=== PATIENT | male | born 1955 | race Caucasian/White ===

== ENCOUNTER 2021-02-17 17:02 | Inpatient (IN) | payer MEDICARE, OTHER ==
[~2021-02-17] VITALS: Ht 177.8 cm; Wt 239.4 kg
[2021-02-17 17:30] LABS: Basophils # (auto) 0 10 ^3/uL (0-0.2); Eosinophils # (auto) 0 10 ^3/uL (0-0.8); Lymphocytes # (auto) 0.4 10 ^3/uL (0.4-5.4); Monocytes # (auto) 0.6 10 ^3/uL (0-1.3); Red Blood Cells 2.56 10^6/uL (4.5-5.90); White Blood Cell 6.3 10^3/uL (4.4-10.8)
[2021-02-17 17:32] LABS: Basophils % (auto) 0.4 % (0.0-2.0); Eosinophils % (auto) 0.4 % (0.0-7.0); Hematocrit 24.7 % (41.0-53.0); Hemoglobin 7.9 g/dL (13.5-17.5); Mean Corpuscular Hgb Conc. 32.1 g/dL (32.0-36.0); Mean Corpuscular Volume 96.6 fL (80.0-100.0); Monocytes % (auto) 9.6 % (0.0-12.0); Neutrophils # (auto) 5.2 10 ^3/uL (1.6-8.6); Neutrophils % (auto) 82.6 % (37.0-80.0); Red Cell Distribution Width 18.2 % (11.8-14.3)
[2021-02-17 17:46] LABS: Alanine Aminotransferase 30 U/L (16-61); Albumin 1.7 g/dL (3.4-5.0); Anion Gap 9 (5-15); Aspartate Aminotransferase 45 U/L (15-37); BUN/Creatinine Ratio 25.7; Blood Urea Nitrogen 28 mg/dL (7-18); Calcium 8.1 mg/dL (8.5-10.1); Carbon Dioxide 27 mmol/L (21-32); Chloride 101 mmol/L (98-107); GFR African American 87 mL/min; GFR Non-African American 72 mL/min; Glucose 114 mg/dL (74-106); Potassium 4.3 mmol/L (3.5-5.1); Sodium 137 mmol/L (136-145)
[2021-02-17 18:05] LABS: Alkaline Phosphatase 102 U/L (45-117); Bilirubin, Total 4.2 mg/dL (0.2-1.0); Magnesium 2.6 mg/dL (1.6-2.6); Total Protein 6.9 g/dL (6.4-8.2)
[2021-02-17] MEDS ORDERED: PROMETHAZINE HCL 25 MG/ML 1ML IV ONE (18:30)
[2021-02-17] MEDS ORDERED: ONDANSETRON HCL 4 MG/2 ML VIAL IV PRN (23:00)
[2021-02-17] MEDS ORDERED: NITROGLYCERIN 0.4 MG SL TAB SL PRN (23:00)
[2021-02-17] MEDS ORDERED: MORPHINE SULFATE INJECTION 2 MG/ML SYRG IV PRN (23:00)
[2021-02-17] MEDS: ALBUMIN 25% 50 ML IV SCH (23:52)
[2021-02-18] VITALS (17 sets, daily range): BP systolic 91–121; BP diastolic 42–67
[2021-02-18 00:32] LABS: INR 1.38 (0.9-1.15); Partial Thromboplastin Time 33.7 sec (23.6-33.0)
[2021-02-18] MEDS: MORPHINE SULFATE 4 MG/ML SYR/VIAL IV PRN ×5 (01:41→18:30)
[2021-02-18] MEDS ORDERED: INFLUENZA QUAD 2020-2021 0.5 ML SYRG IM ONE (04:00)
[2021-02-18] MEDS ORDERED: MORP30TA PO (04:11)
[2021-02-18] MEDS ORDERED: ALPR0.25 PO (04:11)
[2021-02-18] MEDS ORDERED: ALLO100T PO (04:11)
[2021-02-18] MEDS ORDERED: FURO1TAB33 PO (04:11)
[2021-02-18] MEDS ORDERED: OXY10CRT PO (04:11)
[2021-02-18] MEDS: SODIUM CHLOR 0.9% PF (SALINE LOCK) 10ML VIAL/SYR IV SCH ×3 (06:00→22:00)
[2021-02-18 06:32] LABS: Basophils # (auto) 0 10 ^3/uL (0-0.2); Basophils % (auto) 0.3 % (0.0-2.0); Eosinophils # (auto) 0 10 ^3/uL (0-0.8); Eosinophils % (auto) 0.3 % (0.0-7.0); Lymphocytes % (auto) 3.4 % (10.0-50.0); Monocytes # (auto) 0.7 10 ^3/uL (0-1.3)
[2021-02-18 06:34] LABS: Hematocrit 21.6 % (41.0-53.0); Lymphocytes # (auto) 0.5 10 ^3/uL (0.4-5.4); Mean Corpuscular Hemoglobin 31.3 pg (28.0-32.0); Mean Corpuscular Hgb Conc. 32.2 g/dL (32.0-36.0); Mean Corpuscular Volume 97.2 fL (80.0-100.0); Monocytes % (auto) 5.5 % (0.0-12.0); Neutrophils % (auto) 90.5 % (37.0-80.0); Nucleated Red Blood Cells % 0.1 %; Red Blood Cells 2.22 10^6/uL (4.5-5.90); Red Cell Distribution Width 18.2 % (11.8-14.3); White Blood Cell 13.3 10^3/uL (4.4-10.8)
[2021-02-18 06:48] LABS: Hemoglobin 6.9 g/dL (13.5-17.5)
[2021-02-18] MEDS: ALBUMIN 25% 50 ML IV SCH ×2 (06:52→16:34)
[2021-02-18 06:58] LABS: Potassium 4.5 mmol/L (3.5-5.1)
[2021-02-18 07:05] LABS: Albumin 1.7 g/dL (3.4-5.0); Calcium 8.1 mg/dL (8.5-10.1)
[2021-02-18 07:07] LABS: Bilirubin, Total 4.8 mg/dL (0.2-1.0); Total Protein 6.2 g/dL (6.4-8.2)
[2021-02-18 07:18] LABS: Urine Bacteria FEW /hpf (None Seen); Urine Blood Negative /uL (Negative); Urine Mucus FEW (None Seen); Urine Specific Gravity 1.024 (1.001-1.035); Urine WBC 29 /hpf (0 - 3)
[2021-02-18] MEDS: ENOXAPARIN SOD 40 MG/0.4 ML SYRINGE SC SCH (09:48)
[2021-02-18] MEDS ORDERED: FAMOTIDINE (10MG/ML) 2ML VL IV SCH (10:00)
[2021-02-18] MEDS: FUROSEMIDE 40 MG/4 ML VIAL IV SCH (10:00)
[2021-02-18] MEDS: ACETAMINOPHEN 325 MG TAB PO PRN (11:46)
[2021-02-18] MEDS: SUCRALFATE 1 GM/10 ML ORAL SUSP PO SCH ×3 (11:46→22:37)
[2021-02-18] MEDS ORDERED: cefTRIAXone 1GM/50ML D5W 50 ML IV ONE (12:15)
[2021-02-18] MEDS: SPIRONOLACTONE 25 MG TAB PO SCH (12:43)
[2021-02-18] MEDS: oxyCODONE HCL 5MG TAB PO PRN ×2 (14:43→22:37)
[2021-02-18] MEDS: PANTOPRAZOLE 40 MG TAB PO SCH (22:37)
[2021-02-19] VITALS (10 sets, daily range): BP systolic 90–108; BP diastolic 42–63
[2021-02-19] MEDS: SODIUM CHLOR 0.9% PF (SALINE LOCK) 10ML VIAL/SYR IV SCH ×3 (05:32→22:00)
[2021-02-19] MEDS: MORPHINE SULFATE 4 MG/ML SYR/VIAL IV PRN ×3 (05:37→19:38)
[2021-02-19] MEDS: SUCRALFATE 1 GM/10 ML ORAL SUSP PO SCH ×4 (06:32→23:54)
[2021-02-19] MEDS: oxyCODONE HCL 5MG TAB PO PRN ×3 (07:21→23:55)
[2021-02-19] MEDS: cefTRIAXone 1GM/50ML D5W 50 ML IV SCH (08:45)
[2021-02-19] MEDS: SPIRONOLACTONE 25 MG TAB PO SCH (08:46)
[2021-02-19] MEDS: FUROSEMIDE 40 MG/4 ML VIAL IV SCH (08:46)
[2021-02-19] MEDS: PANTOPRAZOLE 40 MG TAB PO SCH ×2 (08:46→23:54)
[2021-02-19] MEDS: ENOXAPARIN SOD 40 MG/0.4 ML SYRINGE SC SCH (08:47)
[2021-02-19 11:20] LABS: Basophils # (auto) 0 10 ^3/uL (0-0.2); Basophils % (auto) 0.3 % (0.0-2.0); Eosinophils # (auto) 0.1 10 ^3/uL (0-0.8); Eosinophils % (auto) 1.5 % (0.0-7.0); Hematocrit 24.9 % (41.0-53.0); Hemoglobin 8.1 g/dL (13.5-17.5); Lymphocytes # (auto) 0.5 10 ^3/uL (0.4-5.4); Lymphocytes % (auto) 5.6 % (10.0-50.0); Mean Corpuscular Hemoglobin 31.9 pg (28.0-32.0); Mean Corpuscular Hgb Conc. 32.7 g/dL (32.0-36.0); Mean Corpuscular Volume 97.7 fL (80.0-100.0); Monocytes # (auto) 0.6 10 ^3/uL (0-1.3); Monocytes % (auto) 6.6 % (0.0-12.0); Neutrophils # (auto) 7.9 10 ^3/uL (1.6-8.6); Nucleated Red Blood Cells % 0.1 %; Red Blood Cells 2.55 10^6/uL (4.5-5.90); Red Cell Distribution Width 18.7 % (11.8-14.3); White Blood Cell 9.2 10^3/uL (4.4-10.8)
[2021-02-20] VITALS (14 sets, daily range): BP systolic 95–132; BP diastolic 43–69
[2021-02-20] MEDS: MORPHINE SULFATE 4 MG/ML SYR/VIAL IV PRN ×3 (00:51→22:03)
[2021-02-20] MEDS: oxyCODONE HCL 5MG TAB PO PRN ×3 (04:23→18:21)
[2021-02-20] MEDS: SODIUM CHLOR 0.9% PF (SALINE LOCK) 10ML VIAL/SYR IV SCH ×3 (05:46→22:02)
[2021-02-20 07:35] LABS: Basophils # (auto) 0 10 ^3/uL (0-0.2); Eosinophils # (auto) 0.2 10 ^3/uL (0-0.8); Hemoglobin 8.4 g/dL (13.5-17.5); Lymphocytes # (auto) 0.5 10 ^3/uL (0.4-5.4); Mean Corpuscular Hemoglobin 32.2 pg (28.0-32.0); Monocytes # (auto) 0.7 10 ^3/uL (0-1.3); Nucleated Red Blood Cells % 0.2 %
[2021-02-20 07:37] LABS: Basophils % (auto) 0.2 % (0.0-2.0); Eosinophils % (auto) 2.4 % (0.0-7.0); Hematocrit 25.3 % (41.0-53.0); Lymphocytes % (auto) 5.6 % (10.0-50.0); Mean Corpuscular Hgb Conc. 33.2 g/dL (32.0-36.0); Mean Corpuscular Volume 96.8 fL (80.0-100.0); Neutrophils # (auto) 6.7 10 ^3/uL (1.6-8.6); Neutrophils % (auto) 82.8 % (37.0-80.0); Red Blood Cells 2.61 10^6/uL (4.5-5.90); Red Cell Distribution Width 17.9 % (11.8-14.3); White Blood Cell 8.1 10^3/uL (4.4-10.8)
[2021-02-20] MEDS: cefTRIAXone 1GM/50ML D5W 50 ML IV SCH (09:42)
[2021-02-20] MEDS: SUCRALFATE 1 GM/10 ML ORAL SUSP PO SCH ×4 (09:42→22:02)
[2021-02-20] MEDS: SPIRONOLACTONE 25 MG TAB PO SCH (09:43)
[2021-02-20] MEDS: PANTOPRAZOLE 40 MG TAB PO SCH ×2 (09:45→22:02)
[2021-02-20] MEDS: FUROSEMIDE 40 MG/4 ML VIAL IV SCH (09:49)
[2021-02-20] MEDS: ENOXAPARIN SOD 40 MG/0.4 ML SYRINGE SC SCH (10:00)
[2021-02-20 11:20] LABS: % Iron Saturation 13.8 % (20-55)
[2021-02-20] MEDS: predniSONE 20 MG TAB PO SCH (12:00)
[2021-02-21] VITALS (13 sets, daily range): BP systolic 96–118; BP diastolic 45–69
[2021-02-21] MEDS: oxyCODONE HCL 5MG TAB PO PRN ×3 (03:09→19:22)
[2021-02-21 05:38] LABS: Basophils # (auto) 0 10 ^3/uL (0-0.2); Basophils % (auto) 0.1 % (0.0-2.0); Eosinophils # (auto) 0 10 ^3/uL (0-0.8); Monocytes # (auto) 0.5 10 ^3/uL (0-1.3); Nucleated Red Blood Cells % 0.1 %
[2021-02-21 05:41] LABS: Hematocrit 25.2 % (41.0-53.0); Hemoglobin 8.3 g/dL (13.5-17.5); Lymphocytes # (auto) 0.2 10 ^3/uL (0.4-5.4); Lymphocytes % (auto) 3.7 % (10.0-50.0); Mean Corpuscular Hemoglobin 31.9 pg (28.0-32.0); Mean Corpuscular Hgb Conc. 33.1 g/dL (32.0-36.0); Mean Corpuscular Volume 96.4 fL (80.0-100.0); Monocytes % (auto) 7.6 % (0.0-12.0); Neutrophils # (auto) 5.9 10 ^3/uL (1.6-8.6); Neutrophils % (auto) 88.6 % (37.0-80.0); Red Blood Cells 2.62 10^6/uL (4.5-5.90); White Blood Cell 6.7 10^3/uL (4.4-10.8)
[2021-02-21] MEDS: SODIUM CHLOR 0.9% PF (SALINE LOCK) 10ML VIAL/SYR IV SCH ×3 (06:15→21:44)
[2021-02-21] MEDS: SUCRALFATE 1 GM/10 ML ORAL SUSP PO SCH ×4 (06:15→21:44)
[2021-02-21] MEDS: cefTRIAXone 1GM/50ML D5W 50 ML IV SCH (09:35)
[2021-02-21] MEDS: ENOXAPARIN SOD 40 MG/0.4 ML SYRINGE SC SCH (09:35)
[2021-02-21] MEDS: predniSONE 20 MG TAB PO SCH (09:36)
[2021-02-21] MEDS: PANTOPRAZOLE 40 MG TAB PO SCH ×2 (09:36→21:44)
[2021-02-21] MEDS: SPIRONOLACTONE 25 MG TAB PO SCH (09:36)
[2021-02-21] MEDS: FUROSEMIDE 40 MG/4 ML VIAL IV SCH (09:36)
[2021-02-21] MEDS: MORPHINE SULFATE 4 MG/ML SYR/VIAL IV PRN (15:21)
[2021-02-21] MEDS: ACETAMINOPHEN 325 MG TAB PO PRN (21:45)
[2021-02-22] VITALS (10 sets, daily range): BP systolic 98–115; BP diastolic 45–66
[2021-02-22] MEDS: oxyCODONE HCL 5MG TAB PO PRN ×4 (02:57→22:26)
[2021-02-22] MEDS: SODIUM CHLOR 0.9% PF (SALINE LOCK) 10ML VIAL/SYR IV SCH ×3 (05:56→22:18)
[2021-02-22] MEDS: SUCRALFATE 1 GM/10 ML ORAL SUSP PO SCH ×4 (05:57→22:18)
[2021-02-22] MEDS: cefTRIAXone 1GM/50ML D5W 50 ML IV SCH (09:56)
[2021-02-22] MEDS: PANTOPRAZOLE 40 MG TAB PO SCH ×2 (09:58→22:19)
[2021-02-22] MEDS: FUROSEMIDE 40 MG/4 ML VIAL IV SCH (09:58)
[2021-02-22] MEDS: SPIRONOLACTONE 25 MG TAB PO SCH (09:58)
[2021-02-22] MEDS: predniSONE 20 MG TAB PO SCH (09:58)
[2021-02-22] MEDS: ENOXAPARIN SOD 40 MG/0.4 ML SYRINGE SC SCH (09:59)
[2021-02-23] MEDS: oxyCODONE HCL 5MG TAB PO PRN ×5 (02:30→21:50)
[2021-02-23 05:00] VITALS: BP 111/64
[2021-02-23] MEDS: SUCRALFATE 1 GM/10 ML ORAL SUSP PO SCH ×4 (06:37→21:49)
[2021-02-23] MEDS: SODIUM CHLOR 0.9% PF (SALINE LOCK) 10ML VIAL/SYR IV SCH ×3 (06:37→21:49)
[2021-02-23 09:00] VITALS: BP 114/62
[2021-02-23] MEDS: PANTOPRAZOLE 40 MG TAB PO SCH ×2 (10:09→21:49)
[2021-02-23] MEDS: ENOXAPARIN SOD 40 MG/0.4 ML SYRINGE SC SCH ×2 (10:09→10:23)
[2021-02-23] MEDS: cefTRIAXone 1GM/50ML D5W 50 ML IV SCH (10:09)
[2021-02-23] MEDS: predniSONE 20 MG TAB PO SCH (10:09)
[2021-02-23] MEDS: SPIRONOLACTONE 25 MG TAB PO SCH (10:09)
[2021-02-23] MEDS: FUROSEMIDE 40 MG/4 ML VIAL IV SCH (10:12)
[2021-02-23 13:00] VITALS: BP 143/63
[2021-02-23 16:44] VITALS: BP 142/68
[2021-02-23 22:00] VITALS: BP 121/63
[2021-02-24] MEDS: oxyCODONE HCL 5MG TAB PO PRN ×4 (02:27→17:03)
[2021-02-24 05:20] VITALS: BP 116/64
[2021-02-24] MEDS: SUCRALFATE 1 GM/10 ML ORAL SUSP PO SCH ×3 (06:56→16:58)
[2021-02-24] MEDS: SODIUM CHLOR 0.9% PF (SALINE LOCK) 10ML VIAL/SYR IV SCH ×2 (06:56→15:21)
[2021-02-24 09:00] VITALS: BP 111/55
[2021-02-24] MEDS: ENOXAPARIN SOD 40 MG/0.4 ML SYRINGE SC SCH ×2 (10:00→12:39)
[2021-02-24] MEDS: cefTRIAXone 1GM/50ML D5W 50 ML IV SCH (11:30)
[2021-02-24] MEDS: predniSONE 20 MG TAB PO SCH (11:31)
[2021-02-24] MEDS: SPIRONOLACTONE 25 MG TAB PO SCH (11:31)
[2021-02-24] MEDS: FUROSEMIDE 40 MG/4 ML VIAL IV SCH (11:31)
[2021-02-24] MEDS: PANTOPRAZOLE 40 MG TAB PO SCH (11:32)
[2021-02-24 13:00] VITALS: BP 119/65
[2021-02-24 16:10] LABS: Basophils # (auto) 0 10 ^3/uL (0-0.2); Basophils % (auto) 0.2 % (0.0-2.0); Eosinophils # (auto) 0 10 ^3/uL (0-0.8); Eosinophils % (auto) 0.1 % (0.0-7.0); Hematocrit 30.1 % (41.0-53.0); Hemoglobin 9.6 g/dL (13.5-17.5); Lymphocytes # (auto) 0.4 10 ^3/uL (0.4-5.4); Lymphocytes % (auto) 6.4 % (10.0-50.0); Mean Corpuscular Hemoglobin 30.8 pg (28.0-32.0); Mean Corpuscular Hgb Conc. 31.9 g/dL (32.0-36.0); Mean Corpuscular Volume 96.6 fL (80.0-100.0); Monocytes # (auto) 0.5 10 ^3/uL (0-1.3); Monocytes % (auto) 8.6 % (0.0-12.0); Neutrophils % (auto) 84.7 % (37.0-80.0); Nucleated Red Blood Cells % 0.7 %; Red Blood Cells 3.12 10^6/uL (4.5-5.90); Red Cell Distribution Width 18.7 % (11.8-14.3); White Blood Cell 5.9 10^3/uL (4.4-10.8)
[2021-02-24 16:18] LABS: Albumin 1.6 g/dL (3.4-5.0); Calcium 8.1 mg/dL (8.5-10.1); Potassium 4.8 mmol/L (3.5-5.1)
[2021-02-24 16:20] LABS: BUN/Creatinine Ratio 33.3; Bilirubin, Total 4.1 mg/dL (0.2-1.0); Total Protein 6.9 g/dL (6.4-8.2)
[2021-02-24 17:00] VITALS: BP 108/72
== END 2021-02-24 20:11 | disposition short-term general hospital (02) | DRG 432 ==
LOC: ER 17:02 → TELE 23:00 → TELE-CENTR 23:45
PROVIDERS: ADMIT Nurse Practitioner Family; ATTEND Family Medicine
PROC: 30233N1 Transfusion of Nonautologous Red Blood Cells into Peripheral Vein, Percutaneous Approach (ICD-10-PCS; 2021-02-18)
PROC: 30233R1 Transfusion of Nonautologous Platelets into Peripheral Vein, Percutaneous Approach (ICD-10-PCS; principal; 2021-02-20)
DX: K74.60 Unspecified cirrhosis of liver (principal); E43 Unspecified severe protein-calorie malnutrition; R18.8 Other ascites; N39.0 Urinary tract infection, site not specified; D68.9 Coagulation defect, unspecified; Z68.45 Body mass index [BMI] 70 or greater, adult; L97.928 Non-pressure chronic ulcer of unspecified part of left lower leg with other specified severity; L97.918 Non-pressure chronic ulcer of unspecified part of right lower leg with other specified severity; K75.81 Nonalcoholic steatohepatitis (NASH); S82.851A Displaced trimalleolar fracture of right lower leg, initial encounter for closed fracture; E66.01 Morbid (severe) obesity due to excess calories; D69.6 Thrombocytopenia, unspecified; G89.4 Chronic pain syndrome; Z20.822 Contact with and (suspected) exposure to COVID-19; I87.8 Other specified disorders of veins; I87.2 Venous insufficiency (chronic) (peripheral); I50.9 Heart failure, unspecified; D63.8 Anemia in other chronic diseases classified elsewhere; I25.10 Atherosclerotic heart disease of native coronary artery without angina pectoris; Z96.642 Presence of left artificial hip joint; Z80.0 Family history of malignant neoplasm of digestive organs; Z28.21 Immunization not carried out because of patient refusal; Z82.49 Family history of ischemic heart disease and other diseases of the circulatory system; Y93.89 Activity, other specified; Y99.8 Other external cause status; Z88.5 Allergy status to narcotic agent; W18.39XA Other fall on same level, initial encounter; Y92.098 Other place in other non-institutional residence as the place of occurrence of the external cause
CPT/HCPCS: 36415; 71045; 73590; 73610; 76700; 80053; 81001; 82140; 82607; 83036; 83540; 83550; 83735; 83880; 84443; 84484; 85025; 85045; 85610; 85652; 85730; 86038; 86850; 86900; 86901; 86920; 87081; 87086; 87426; 93005; 96365; 96375; G0378; J0696; J2405; J3490

== ENCOUNTER 2021-03-25 21:55 | Emergency (ER) | payer MEDICARE ==
[~2021-03-25] VITALS: Ht 165.1 cm; Wt 226.8 kg
[~2021-03-25 21:55] MED LIST: ALLO100T PO; ALPR0.25 PO; FURO1TAB33 PO; MORP30TA PO; OXY10CRT PO
[2021-03-25 23:56] LABS: Hemoglobin 9.7 g/dL (13.5-17.5); White Blood Cell 11.5 10^3/uL (4.4-10.8)
[2021-03-25 23:58] LABS: Hematocrit 29.8 % (41.0-53.0); Mean Corpuscular Hemoglobin 32.4 pg (28.0-32.0); Mean Corpuscular Hgb Conc. 32.6 g/dL (32.0-36.0); Mean Corpuscular Volume 99.3 fL (80.0-100.0)
[2021-03-26 00:09] LABS: Red Cell Distribution Width 23.1 % (11.8-14.3)
[2021-03-26 00:10] LABS: Basophils % (manual) 0 (0.0-2.0); Blast Cells 0; Eosinophils % (manual) 0 (0-7); Metamyelocytes % 0; Myelocytes % 0; Promyelocytes % 0; Reactive Lymphocytes 0
[2021-03-26 00:12] LABS: INR 1.5 (0.9-1.15); Partial Thromboplastin Time 46.4 sec (23.6-33.0)
[2021-03-26 00:13] LABS: Band Neutrophils % (manual) 15; Lymphocytes % (manual) 4 (10.0-50.0); Monocytes % (manual) 3 (0-12)
[2021-03-26 00:16] LABS: Albumin 1.1 g/dL (3.4-5.0); Anion Gap 9 (5-15); Calcium 8.3 mg/dL (8.5-10.1); Carbon Dioxide 24 mmol/L (21-32); Chloride 91 mmol/L (98-107); Glucose 101 mg/dL (74-106); Sodium 124 mmol/L (136-145)
[2021-03-26 00:19] LABS: Alanine Aminotransferase 42 U/L (16-61); Aspartate Aminotransferase 126 U/L (15-37); BUN/Creatinine Ratio 28.6; Blood Alcohol < 3.0 mg/dL (0-5); GFR African American 27 mL/min; GFR Non-African American 23 mL/min
[2021-03-26 00:20] LABS: Lactic Acid w/Reflex 2.5 mmol/L (0.4-2.0)
[2021-03-26 00:21] LABS: Alkaline Phosphatase 202 U/L (45-117); Bilirubin, Total 4.4 mg/dL (0.2-1.0); Total Protein 6.9 g/dL (6.4-8.2)
[2021-03-26 00:34] LABS: Blood Urea Nitrogen 85 mg/dL (7-18); Potassium 6.5 mmol/L (3.5-5.1)
[2021-03-26] MEDS ORDERED: SODIUM ZIRCONIUM CYCL 10 GM PAK PO ONE (01:00)
[2021-03-26] MEDS ORDERED: CALCIUM GLUC 1,000mg/50ml-NS 50 ML IV ONE (01:00)
[2021-03-26] MEDS ORDERED: SODIUM CHLORIDE 0.9% 1,000 ML IV ONE ×2 (02:30→04:00)
[2021-03-26] MEDS ORDERED: MORPHINE SULFATE 4 MG/ML SYR/VIAL IV PRN (02:45)
[2021-03-26] MEDS ORDERED: HYDROcodone-ACET 5/325MG TAB PO PRN (02:45)
[2021-03-26] MEDS ORDERED: ALBUMIN 25% 100 ML IV SCH (02:45)
[2021-03-26] MEDS ORDERED: ACETAMINOPHEN 325 MG TAB PO PRN (02:45)
[2021-03-26] MEDS ORDERED: DOCUSATE SOD 100 MG CAP PO PRN (02:45)
[2021-03-26] MEDS ORDERED: ONDANSETRON HCL 4 MG/2 ML VIAL IV PRN (02:45)
[2021-03-26] MEDS ORDERED: SODIUM CHLOR 0.9% PF (SALINE LOCK) 10ML VIAL/SYR IV SCH (06:00)
[2021-03-26] MEDS ORDERED: cefTRIAXone 1GM/50ML D5W 50 ML IV SCH (09:00)
[2021-03-26 09:35] VITALS: BP 99/50
[2021-03-26] MEDS ORDERED: HEPARIN SODIUM (PORCINE) 5000 UNITS/ML 1ML VIAL SC SCH (10:00)
[2021-03-26] MEDS ORDERED: MULTIPLE VITAMIN TAB PO SCH (10:00)
[2021-03-26] MEDS ORDERED: ZINC SULFATE 220mg CAP or TAB PO SCH (10:00)
[2021-03-26] MEDS ORDERED: ASCORBIC ACID 500 MG TAB PO SCH (10:00)
[2021-03-26] MEDS ORDERED: FUROSEMIDE 40 MG/4 ML VIAL IV SCH (10:00)
[2021-03-26] MEDS ORDERED: FAMOTIDINE (10MG/ML) 2ML VL IV SCH (10:00)
[2021-03-26] MEDS ORDERED: AZITHROMYCIN 500MG/ 250ML 250 ML IV SCH (10:00)
[2021-03-26 11:17] LABS: Alanine Aminotransferase 44 U/L (16-61); Albumin 1.6 g/dL (3.4-5.0); Alkaline Phosphatase 192 U/L (45-117); Anion Gap 13 (5-15); Aspartate Aminotransferase 112 U/L (15-37); Bilirubin, Total 4.6 mg/dL (0.2-1.0); Calcium 7.5 mg/dL (8.5-10.1); Carbon Dioxide 21 mmol/L (21-32); Chloride 94 mmol/L (98-107); GFR African American 27 mL/min; GFR Non-African American 22 mL/min; Glucose 95 mg/dL (74-106); Sodium 128 mmol/L (136-145); Total Protein 6.6 g/dL (6.4-8.2)
[2021-03-26 11:22] LABS: Blood Urea Nitrogen 88 mg/dL (7-18); Potassium 6.3 mmol/L (3.5-5.1)
== END 2021-03-26 09:30 | disposition home or self-care (01) ==
LOC: ER 21:55 → EDBD 21:55 → ER 03-26 09:30
DX: R41.82 Altered mental status, unspecified (principal); I11.0 Hypertensive heart disease with heart failure; I50.9 Heart failure, unspecified; Z86.2 Personal history of diseases of the blood and blood-forming organs and certain disorders involving the immune mechanism; Z79.899 Other long term (current) drug therapy; Z20.822 Contact with and (suspected) exposure to COVID-19
CPT/HCPCS: 36415; 71045; 80053; 80320; 83605; 83735; 84484; 85007; 85027; 85610; 85730; 87426; 93005; 96361; 96365; 96367; 99285; J0610; J7030; P9047